=== PATIENT | male | born 1950 | race Caucasian/White ===

== ENCOUNTER 2018-05-10 05:39 | Inpatient (IN) | payer MEDICARE, OTHER ==
[2018-05-08 13:44] LABS: CLARITY,URINE CLEAR (Clear); COLOR,URINE YELLOW (Yellow); GLUCOSE, URINE NEGATIVE (Neg); KETONES,URINE NEGATIVE (Neg); LEUKOCYTE ESTERASE ,URINE NEGATIVE (Neg); NITRITES, URINE NEGATIVE (Neg); OCCULT BLOOD,URINE NEGATIVE (Neg); PH,URINE 6.5 (4.8-8.0); PROTEIN,URINE NEGATIVE (Neg); UROBILINOGEN,URINE 0.2 E.U/dL (0.2-1.0)
[2018-05-08 13:44] LABS: BASOPHILS % (AUTO) 0.7 % (0-1); EOSINOPHILS # (AUTO) 0.1 X10'3 (0-0.9); EOSINOPHILS % (AUTO) 2.2 % (0-6); LYMPHOCYTES # (AUTO) 0.9 X10'3 (1.1-4.8); MEAN CORPUSCULAR HEMOGLOBIN 29.1 PG (27.0-31.0); MEAN CORPUSCULAR HGB CONC 32.7 % (33.0-36.5); MEAN PLATELET VOLUME 9.1 FL (7.4-10.4); MONOCYTES # (AUTO) 0.6 X10'3 (0-0.9); MONOCYTES % (AUTO) 9.5 % (2-12); NEUTROPHILS # (AUTO) 4.2 X10'3 (1.8-7.7); NEUTROPHILS % (AUTO) 72.6 % (42-75); PRE OP HEMATOCRIT 34.5 % (42.0-52.0); PRE OP HEMOGLOBIN 11.3 g/dL (14.0-17.9); PRE OP PLATELET COUNT 238 X10'3 (140-440); RED BLOOD COUNT 3.88 X10'6 (4.70-6.10); RED CELL DISTRIBUTION WIDTH 14.8 % (11.5-14.5)
[2018-05-08 13:48] LABS: PRE OP PROTIME 9.8 SECONDS (9.0-12.0)
[2018-05-08 13:49] LABS: UA COLLECTION TYPE CLN CATCH MIDSTREAM
[2018-05-08 13:50] LABS: HEMOGLOBIN A1C 5.8 % (4.5-6.2)
[2018-05-08 13:52] LABS: ALBUMIN 3.6 G/DL (3.4-5.0); ALKALINE PHOSPHATASE 103 IU/L (46-116); BLOOD UREA NITROGEN 17 MG/DL (7-18); BUN/CREATININE RATIO 17.3 (5.4-32.0); CHLORIDE 103 MMOL/L (99-107); CREATININE 0.98 MG/DL (0.60-1.10); PRE OP ALT 25 U/L (30-65); PRE OP ANION GAP 7 (8-16); PRE OP AST 22 U/L (10-37); PRE OP BILIRUB, TOTAL 0.4 MG/DL (0.0-1.0); PRE OP GLUCOSE 102 MG/DL (70-104); PRE OP SODIUM 141 MMOL/L (135-145); TOTAL CARBON DIOXIDE 30.7 MMOL/L (24-32); TOTAL PROTEIN 7.1 G/DL (6.4-8.2); eGFR 76 ML/MIN
[2018-05-09 05:40] LABS: ABG HCO3 25.5 mmol/L (22.0-26.0); ABG OXYGEN SATURATION 95.7 % (95-98); ABG PH (T) 7.422 (7.350-7.450); ABG PO2 (T) 80.9 mmHg (83-108); ALLEN'S TEST Positive; FCOHb 0.2 % (0.5-1.5); FMetHb 0.3 % (0.3-1.12); FO2Hb 95.2 % (94-100); TOTAL HEMOGLOBIN 11.7 G/dl (14.0-18.0)
[2018-05-10] VITALS (29 sets, daily range): BP systolic 87–121; BP diastolic 46–71
[~2018-05-10] VITALS: Ht 180.3 cm; Wt 109.4 kg
[2018-05-10] MEDS: insulin regular, human 100 UNIT in normal saline 100ml IV soln 99 ML IV SCH ×2 (05:30)
[~2018-05-10 05:39] MED LIST: LORazepam 2 mg/ml vial IV PRN; METO25TA6 PO; NAPR-1166 PO; NITR0.4T51 SL; [UNRECOGNIZED DRUG - OTHER]; cefazolin/dext.iso 2gm/50ml 50 ML IV ONE; famotidine 20mg tablet PO ONE; metoprolol tartrate 12.5mg (1/2 tablet) PO ONE; mupirocin 2% nasal ointment 1gm UD NS ONE; ringers solution, lacted 1,000 ML IV SCH; vancomycin inj 1,500 MG in normal saline 300ml IV soln IV ONE
[2018-05-10] MEDS ORDERED: sevoflurane 250ml liquid IH ONE (06:41)
[2018-05-10] MEDS ORDERED: protamine sulf. 10mg/ml inj. IV ONE (06:41)
[2018-05-10] MEDS ORDERED: DOPamine/D5W 400mg/250ml bag IV ONE (06:41)
[2018-05-10] MEDS ORDERED: neostigmine methylsulfate 1 MG/ML 10ml vial ONE (06:41)
[2018-05-10] MEDS ORDERED: INSULIN R 100 UNIT in NS 100ML (1 UNIT/1 ML) BAG IV ONE (06:41)
[2018-05-10] MEDS ORDERED: NORepinephrine bitartrate 8 MG in NS 250 ML BAG (32 mcg/ml) IV ONE (06:41)
[2018-05-10] MEDS ORDERED: aminocaproic acid 250 MG/1 ML inj. ONE ×2 (06:41→14:00)
[2018-05-10] MEDS ORDERED: MIDAZolam 1mg/ml 10ml vial ONE (06:43)
[2018-05-10] MEDS ORDERED: SUFENTANIL CITRATE 50 MCG/ML 2ml ampule IV ONE (06:43)
[2018-05-10 07:40] LABS: ABG BASE EXCESS 0.4 mmol/L (-2.0-3.0); ABG HCO3 25.6 mmol/L (22.0-26.0); ABG OXYGEN SATURATION 99.5 % (95-98); ABG PCO2 44.1 mmHg (35.0-45.0); ABG PH 7.382 (7.350-7.450); ABG PO2 275.9 mmHg (60.0-100.0); CL (ABG) 107 mmol/L (99-107); FCOHb 0.1 % (0.5-1.5); FMetHb 0.3 % (0.3-1.12); FO2Hb 99.1 % (94-100); GLUCOSE (ABG) 109 mg/dl (70-105); IONIZED CA (ABG) 1.13 mmol/L (1.03-1.32); K (ABG) 3.6 mmol/L (3.3-5.1); NA (ABG) 138 mmol/L (135-145); TOTAL HEMOGLOBIN 10.4 G/dl (14.0-18.0)
[2018-05-10] MEDS ORDERED: rocuronium 10mg/ml inj IV ONE ×3 (07:41)
[2018-05-10] MEDS ORDERED: propofol inj 20 ML IV ONE (07:41)
[2018-05-10] MEDS ORDERED: papaverine 30 mg/ml 2ml inj. IA ONE (08:13)
[2018-05-10] MEDS ORDERED: heparin 10,000 units/1 ML INJ IR ONE (08:14)
[2018-05-10 08:41] LABS: ACT @ 1.70 U 313 SEC (193-297); ACT @ 2.84 U 418 SEC (260-420); BASELINE ACT 141 SEC (101-148)
[2018-05-10 08:41] LABS: ABG HCO3 VENOUS 25.7 mmol/L; ABG PCO2 VENOUS 46.7 mmHg; ABG PO2 VENOUS 48.4 mmHg; CL (ABG) 107 mmol/L (99-107); FCOHb VENOUS 0.5 %; FMetHb VENOUS 0.1 %; FO2Hb VENOUS 83.4 %; GLUCOSE (ABG) 119 mg/dl (70-105); IONIZED CA (ABG) 1.09 mmol/L (1.03-1.32); K (ABG) 3.7 mmol/L (3.3-5.1); NA (ABG) 136 mmol/L (135-145); TOTAL HEMOGLOBIN 10.3 G/dl (14.0-18.0)
[2018-05-10 09:26] LABS: ABG BASE EXCESS -0.5 mmol/L (-2.0-3.0); ABG HCO3 23.7 mmol/L (22.0-26.0); ABG OXYGEN SATURATION 99.4 % (95-98); ABG PCO2 36.8 mmHg (35.0-45.0); ABG PH 7.427 (7.350-7.450); ABG PO2 353.8 mmHg (60.0-100.0); CL (ABG) 106 mmol/L (99-107); FCOHb 0.8 % (0.5-1.5); FMetHb 0.3 % (0.3-1.12); FO2Hb 98.3 % (94-100); GLUCOSE (ABG) 125 mg/dl (70-105); IONIZED CA (ABG) 1.01 mmol/L (1.03-1.32); K (ABG) 5.5 mmol/L (3.3-5.1); NA (ABG) 133 mmol/L (135-145); TOTAL HEMOGLOBIN 7.5 G/dl (14.0-18.0)
[2018-05-10 09:45] LABS: ABG BASE EXCESS -1.3 mmol/L (-2.0-3.0); ABG HCO3 22.8 mmol/L (22.0-26.0); ABG OXYGEN SATURATION 99.5 % (95-98); ABG PCO2 35.7 mmHg (35.0-45.0); ABG PH 7.424 (7.350-7.450); ABG PO2 293.8 mmHg (60.0-100.0); CL (ABG) 106 mmol/L (99-107); FCOHb 0.4 % (0.5-1.5); FMetHb 0.1 % (0.3-1.12); GLUCOSE (ABG) 154 mg/dl (70-105); IONIZED CA (ABG) 1.03 mmol/L (1.03-1.32); K (ABG) 4.3 mmol/L (3.3-5.1); NA (ABG) 135 mmol/L (135-145); TOTAL HEMOGLOBIN 9.3 G/dl (14.0-18.0)
[2018-05-10 10:11] LABS: ABG BASE EXCESS VENOUS -2.1 mmol/L; ABG HCO3 VENOUS 23.1 mmol/L; ABG PCO2 VENOUS 40.9 mmHg; ABG PO2 VENOUS 45.6 mmHg; CL (ABG) 105 mmol/L (99-107); FCOHb VENOUS 0.9 %; FHHb VENOUS 19.7 %; FMetHb VENOUS 0.1 %; FO2Hb VENOUS 79.3 %; GLUCOSE (ABG) 208 mg/dl (70-105); IONIZED CA (ABG) 1.05 mmol/L (1.03-1.32); NA (ABG) 135 mmol/L (135-145); TOTAL HEMOGLOBIN 8.6 G/dl (14.0-18.0)
[2018-05-10 10:26] LABS: ABG BASE EXCESS -1.4 mmol/L (-2.0-3.0); ABG OXYGEN SATURATION 99.3 % (95-98); ABG PCO2 50.7 mmHg (35.0-45.0); ABG PO2 223.5 mmHg (60.0-100.0); CL (ABG) 106 mmol/L (99-107); FCOHb 0.8 % (0.5-1.5); FMetHb 0.1 % (0.3-1.12); FO2Hb 98.4 % (94-100); GLUCOSE (ABG) 234 mg/dl (70-105); IONIZED CA (ABG) 1.05 mmol/L (1.03-1.32); K (ABG) 3.8 mmol/L (3.3-5.1); NA (ABG) 135 mmol/L (135-145); TOTAL HEMOGLOBIN 8.2 G/dl (14.0-18.0)
[2018-05-10 10:30] LABS: ABG BASE EXCESS 1.8 mmol/L (-2.0-3.0); ABG HCO3 26.8 mmol/L (22.0-26.0); ABG OXYGEN SATURATION 99.3 % (95-98); ABG PCO2 44.3 mmHg (35.0-45.0); ABG PO2 262.4 mmHg (60.0-100.0); CL (ABG) 106 mmol/L (99-107); FCOHb 0.8 % (0.5-1.5); FO2Hb 98.5 % (94-100); GLUCOSE (ABG) 234 mg/dl (70-105); IONIZED CA (ABG) 1.03 mmol/L (1.03-1.32); K (ABG) 4.1 mmol/L (3.3-5.1); NA (ABG) 136 mmol/L (135-145)
[2018-05-10 10:56] LABS: ABG HCO3 21.3 mmol/L (22.0-26.0); ABG OXYGEN SATURATION 98.5 % (95-98); ABG PCO2 39.8 mmHg (35.0-45.0); ABG PH 7.347 (7.350-7.450); ABG PO2 151.2 mmHg (60.0-100.0); CL (ABG) 104 mmol/L (99-107); FCOHb 0.3 % (0.5-1.5); FMetHb 0.1 % (0.3-1.12); FO2Hb 98.1 % (94-100); GLUCOSE (ABG) 207 mg/dl (70-105); IONIZED CA (ABG) 1.38 mmol/L (1.03-1.32); K (ABG) 3.8 mmol/L (3.3-5.1); NA (ABG) 134 mmol/L (135-145); TOTAL HEMOGLOBIN 9.3 G/dl (14.0-18.0)
[2018-05-10 11:00] LABS: ABG BASE EXCESS 1.4 mmol/L (-2.0-3.0); ABG HCO3 26.3 mmol/L (22.0-26.0); ABG OXYGEN SATURATION 99.2 % (95-98); ABG PCO2 42.7 mmHg (35.0-45.0); ABG PH 7.407 (7.350-7.450); ABG PO2 326.4 mmHg (60.0-100.0); CL (ABG) 105 mmol/L (99-107); FCOHb 0.4 % (0.5-1.5); FMetHb 0.4 % (0.3-1.12); FO2Hb 98.4 % (94-100); GLUCOSE (ABG) 203 mg/dl (70-105); IONIZED CA (ABG) 1.41 mmol/L (1.03-1.32); NA (ABG) 135 mmol/L (135-145); TOTAL HEMOGLOBIN 8.5 G/dl (14.0-18.0)
[2018-05-10 11:21] LABS: ABG BASE EXCESS VENOUS 2.1 mmol/L; ABG HCO3 VENOUS 27.4 mmol/L; ABG PCO2 VENOUS 46.8 mmHg; ABG PO2 VENOUS 50.1 mmHg; CL (ABG) 106 mmol/L (99-107); FCOHb VENOUS 0.5 %; FHHb VENOUS 14.2 %; FMetHb VENOUS 0.3 %; GLUCOSE (ABG) 190 mg/dl (70-105); IONIZED CA (ABG) 1.23 mmol/L (1.03-1.32); K (ABG) 3.7 mmol/L (3.3-5.1); NA (ABG) 138 mmol/L (135-145)
[2018-05-10 11:46] LABS: ACTIVATED CLOTTING TIME 101 SEC (101-148)
[2018-05-10] MEDS ORDERED: nitroGLYCERIN-Tridil 50MG/D5W 250 ML IV PRN (11:53)
[2018-05-10] MEDS ORDERED: niCARDipine-NS 40mg/200ml IVPB 200 ML IV PRN (11:53)
[2018-05-10] MEDS ORDERED: DOPamine 400mg/D5W 250ml 250 ML IV PRN (11:53)
[2018-05-10] MEDS ORDERED: insulin regular, human inj. 100 UNITS in normal saline 100ml IV soln 100 ML IV SCH ×2 (11:55)
[2018-05-10] MEDS ORDERED: sodium phosphate inj. 15 MMOL in dextrose 5%-water 150 ML IV PRN (11:55)
[2018-05-10] MEDS ORDERED: sodium phosphate inj. 30 MMOL in dextrose 5%-water 250 ML IV PRN (11:55)
[2018-05-10] MEDS ORDERED: HYDROcodone/acetaminophen 10/325mg tab PO PRN (11:55)
[2018-05-10] MEDS ORDERED: dextrose 50%-water 50ml dispensing syringe IV PRN (11:55)
[2018-05-10] MEDS ORDERED: normal saline 250ml IV soln 250 ML IV PRN (11:55)
[2018-05-10] MEDS ORDERED: morphine 4 MG/ML inj SYRINge IV PRN (11:55)
[2018-05-10] MEDS ORDERED: metoclopramide 5 mg/ml inj IV PRN (11:55)
[2018-05-10] MEDS ORDERED: magnesium hydroxide 30ml (MOM) UD suspension PO PRN (11:55)
[2018-05-10] MEDS ORDERED: pantoprazole 40 MG vial IV ONE (11:55)
[2018-05-10] MEDS ORDERED: acetaminophen 325mg tablet PO PRN (11:55)
[2018-05-10] MEDS ORDERED: ondansetron/PF 4mg/2ml inj IV PRN (11:55)
[2018-05-10] MEDS ORDERED: Neutra Phos packet PO PRN (11:55)
[2018-05-10] MEDS: insulin Lispro (HumaLOG) vial - multi-dose SQ SCH ×2 (12:02→16:49)
[2018-05-10 12:36] LABS: ABG BASE EXCESS 0.5 mmol/L (-2.0-3.0); ABG HCO3 25.2 mmol/L (22.0-26.0); ABG OXYGEN SATURATION 98.3 % (95-98); ABG PCO2 (T) 41.1 mmHg (35.0-48.0); ABG PH (T) 7.406 (7.350-7.450); ABG PO2 (T) 161.4 mmHg (83-108); FCOHb 0.3 % (0.5-1.5); FMetHb 0.1 % (0.3-1.12); FO2Hb 97.9 % (94-100); MINUTE VOLUME 10 L/min; PEEP 5 cm H2O; RESPIRATORY RATE 12 b/min; RESPIRATORY RATE (OBSERVED) 12 b/min; TIDAL VOLUME 600 mL; TOTAL HEMOGLOBIN 10.2 G/dl (14.0-18.0)
[2018-05-10 12:41] LABS: BASOPHILS % (AUTO) 0.1 % (0-1); EOSINOPHILS # (AUTO) 0.1 X10'3 (0-0.9); EOSINOPHILS % (AUTO) 1.2 % (0-6); HEMATOCRIT 28.4 % (42.0-52.0); HEMOGLOBIN 9.3 g/dl (14.0-17.9); LYMPHOCYTES # (AUTO) 0.7 X10'3 (1.1-4.8); LYMPHOCYTES % (AUTO) 5.7 % (21-51); MEAN CORPUSCULAR HEMOGLOBIN 29.1 PG (27.0-31.0); MEAN CORPUSCULAR HGB CONC 32.9 % (33.0-36.5); MEAN CORPUSCULAR VOLUME 88.4 FL (78-98); MEAN PLATELET VOLUME 8.6 FL (7.4-10.4); MONOCYTES # (AUTO) 1.1 X10'3 (0-0.9); MONOCYTES % (AUTO) 9.4 % (2-12); NEUTROPHILS % (AUTO) 83.6 % (42-75); PLATELET COUNT 138 X10'3 (140-440); RED BLOOD COUNT 3.21 X10'6 (4.70-6.10); RED CELL DISTRIBUTION WIDTH 14.5 % (11.5-14.5)
[2018-05-10] MEDS: albumin (Human) 5% 250ml 250 ML IV PRN ×4 (12:52→19:51)
[2018-05-10] MEDS: phenylephrine inj 10 MG in normal saline 250ml IV soln 249 ML IV SCH ×4 (13:20→23:20)
[2018-05-10] MEDS: sodium chloride 0.45% 1,000 ML IV SCH (13:22)
[2018-05-10 13:23] LABS: INR 1.2 INR; PARTIAL THROMBOPLASTIN TIME 23 SECONDS (22-32); PROTHROMBIN TIME 11.6 SECONDS (9.0-12.0)
[2018-05-10 13:24] LABS: ALANINE AMINOTRANSFERASE 21 U/L (12-78); ALBUMIN 2.9 G/DL (3.4-5.0); ALBUMIN/GLOBULIN RATIO 1.3 (1.1-1.5); ALKALINE PHOSPHATASE 70 IU/L (46-116); ANION GAP 10 (8-16); ASPARTATE AMINO TRANSFERASE 44 U/L (10-37); BILIRUBIN,TOTAL 0.8 MG/DL (0.1-1.0); BLOOD UREA NITROGEN 13 MG/DL (7-18); BUN/CREATININE RATIO 13.7 (5.4-32.0); CALCIUM 9.2 MG/DL (8.5-10.1); CHLORIDE 109 MMOL/L (99-107); CREATININE 0.95 MG/DL (0.60-1.10); GLUCOSE 143 MG/DL (70-104); MAGNESIUM 2.8 MG/DL (1.5-2.4); PHOSPHORUS 2.7 MG/DL (2.3-4.5); POTASSIUM 3.6 MMOL/L (3.5-5.1); SODIUM 145 MMOL/L (135-145); TOTAL CARBON DIOXIDE 26.5 MMOL/L (24-32); TOTAL PROTEIN 5.2 G/DL (6.4-8.2); eGFR 79 ML/MIN
[2018-05-10] MEDS ORDERED: NORepinephrine 8mg/ 250ml NS 250 ML IV ONE (13:39)
[2018-05-10] MEDS: morphine 4 MG/ML inj SYRINge IV PRN ×4 (13:47→23:19)
[2018-05-10] MEDS: NORepinephrine 8mg/ 250ml NS 250 ML IV SCH ×2 (13:47→21:21)
[2018-05-10] MEDS ORDERED: heparin 10,000 units/1 ML INJ ONE (14:00)
[2018-05-10] MEDS ORDERED: phenylephrine 10mg/ml inj. ONE (14:00)
[2018-05-10] MEDS ORDERED: LIDOcaine 2% (20 mg/ml) 5ml cardiac syringe ONE (14:00)
[2018-05-10] MEDS ORDERED: albumin (human) 25% 100 ML IV solution IV ONE (14:00)
[2018-05-10] MEDS ORDERED: potassium Cl 2 mEq/ml inj IV ONE (14:00)
[2018-05-10] MEDS ORDERED: calcium chloride 100 MG/1 ML inj IV ONE (14:00)
[2018-05-10] MEDS ORDERED: sodium bicarbonate (8.4%) 1 mEq/ml syringe ONE (14:00)
[2018-05-10] MEDS ORDERED: methylPREDNISolone sod. succ. 500mg inj ONE (14:00)
[2018-05-10] MEDS ORDERED: heparin 1,000 units/ml 10ml inj ONE (14:00)
[2018-05-10] MEDS ORDERED: magnesium 1 GM/2 ML inj ONE (14:00)
[2018-05-10] MEDS: potassium Cl 20mEq/100mL bag 100 ML IV PRN ×2 (14:43→15:45)
[2018-05-10 16:18] LABS: HEMATOCRIT 23.1 % (42.0-52.0); HEMOGLOBIN 7.5 g/dl (14.0-17.9); MEAN CORPUSCULAR HEMOGLOBIN 28.8 PG (27.0-31.0); MEAN CORPUSCULAR HGB CONC 32.6 % (33.0-36.5); MEAN CORPUSCULAR VOLUME 88.5 FL (78-98); MEAN PLATELET VOLUME 8.5 FL (7.4-10.4); PLATELET COUNT 135 X10'3 (140-440); RED BLOOD COUNT 2.61 X10'6 (4.70-6.10); RED CELL DISTRIBUTION WIDTH 14.8 % (11.5-14.5); WHITE BLOOD COUNT 13.5 X10'3 (4.5-11.0)
[2018-05-10] MEDS: cefazolin/dext.iso 2gm/50ml 50 ML IV SCH (16:49)
[2018-05-10 20:00] LABS: BASOPHILS % (AUTO) 0 % (0-1); EOSINOPHILS % (AUTO) 0 % (0-6); HEMATOCRIT 24.1 % (42.0-52.0); HEMOGLOBIN 7.8 g/dl (14.0-17.9); LYMPHOCYTES # (AUTO) 0.2 X10'3 (1.1-4.8); LYMPHOCYTES % (AUTO) 2.5 % (21-51); MEAN CORPUSCULAR HEMOGLOBIN 28.8 PG (27.0-31.0); MEAN CORPUSCULAR HGB CONC 32.3 % (33.0-36.5); MEAN CORPUSCULAR VOLUME 89.2 FL (78-98); MEAN PLATELET VOLUME 8.4 FL (7.4-10.4); MONOCYTES # (AUTO) 0.4 X10'3 (0-0.9); MONOCYTES % (AUTO) 4.6 % (2-12); NEUTROPHILS # (AUTO) 8.5 X10'3 (1.8-7.7); NEUTROPHILS % (AUTO) 92.9 % (42-75); PLATELET COUNT 154 X10'3 (140-440); RED CELL DISTRIBUTION WIDTH 14.4 % (11.5-14.5); WHITE BLOOD COUNT 9.2 X10'3 (4.5-11.0)
[2018-05-10] MEDS: docusate sod 100mg capsule PO SCH (20:00)
[2018-05-10 20:08] LABS: ALBUMIN 3.3 G/DL (3.4-5.0); ANION GAP 9 (8-16); BLOOD UREA NITROGEN 15 MG/DL (7-18); CALCIUM 8.5 MG/DL (8.5-10.1); CHLORIDE 111 MMOL/L (99-107); GLUCOSE 118 MG/DL (70-104); MAGNESIUM 2.2 MG/DL (1.5-2.4); PHOSPHORUS 2.6 MG/DL (2.3-4.5); POTASSIUM 4.1 MMOL/L (3.5-5.1); SODIUM 147 MMOL/L (135-145); TOTAL CARBON DIOXIDE 26.9 MMOL/L (24-32); eGFR 75 ML/MIN
[2018-05-10] MEDS: vancomycin/NS 1 GM ADD-VANTAGE 250 ML IV SCH (21:20)
[2018-05-10] MEDS: mupirocin 2% nasal ointment 1gm UD NS SCH (21:20)
[2018-05-11] VITALS (33 sets, daily range): BP systolic 98–138; BP diastolic 36–68
[2018-05-11] MEDS: cefazolin/dext.iso 2gm/50ml 50 ML IV SCH ×3 (00:16→16:13)
[2018-05-11 01:35] LABS: BASOPHILS % (AUTO) 0.1 % (0-1); EOSINOPHILS % (AUTO) 0.1 % (0-6); HEMATOCRIT 22.6 % (42.0-52.0); HEMOGLOBIN 7.8 g/dl (14.0-17.9); LYMPHOCYTES # (AUTO) 0.4 X10'3 (1.1-4.8); LYMPHOCYTES % (AUTO) 4.1 % (21-51); MEAN CORPUSCULAR HEMOGLOBIN 30.8 PG (27.0-31.0); MEAN CORPUSCULAR HGB CONC 34.5 % (33.0-36.5); MEAN CORPUSCULAR VOLUME 89.2 FL (78-98); MEAN PLATELET VOLUME 8.6 FL (7.4-10.4); MONOCYTES # (AUTO) 0.7 X10'3 (0-0.9); MONOCYTES % (AUTO) 6.8 % (2-12); NEUTROPHILS # (AUTO) 9.3 X10'3 (1.8-7.7); NEUTROPHILS % (AUTO) 88.9 % (42-75); PLATELET COUNT 125 X10'3 (140-440); RED BLOOD COUNT 2.53 X10'6 (4.70-6.10); RED CELL DISTRIBUTION WIDTH 13.5 % (11.5-14.5); WHITE BLOOD COUNT 10.4 X10'3 (4.5-11.0)
[2018-05-11 01:47] LABS: ALANINE AMINOTRANSFERASE 20 U/L (12-78); ALBUMIN 3.2 G/DL (3.4-5.0); ALBUMIN/GLOBULIN RATIO 1.4 (1.1-1.5); ALKALINE PHOSPHATASE 54 IU/L (46-116); ANION GAP 8 (8-16); ASPARTATE AMINO TRANSFERASE 43 U/L (10-37); BILIRUBIN,TOTAL 0.4 MG/DL (0.1-1.0); BLOOD UREA NITROGEN 15 MG/DL (7-18); BUN/CREATININE RATIO 14.7 (5.4-32.0); CALCIUM 8.3 MG/DL (8.5-10.1); CHLORIDE 111 MMOL/L (99-107); CREATININE 1.02 MG/DL (0.60-1.10); GLUCOSE 130 MG/DL (70-104); PHOSPHORUS 3.3 MG/DL (2.3-4.5); POTASSIUM 4.1 MMOL/L (3.5-5.1); SODIUM 146 MMOL/L (135-145); TOTAL CARBON DIOXIDE 27.3 MMOL/L (24-32); TOTAL PROTEIN 5.5 G/DL (6.4-8.2); eGFR 73 ML/MIN
[2018-05-11 01:49] LABS: PARTIAL THROMBOPLASTIN TIME 26 SECONDS (22-32); PROTHROMBIN TIME 10.3 SECONDS (9.0-12.0)
[2018-05-11] MEDS: morphine 4 MG/ML inj SYRINge IV PRN ×3 (01:59→22:12)
[2018-05-11] MEDS: phenylephrine inj 10 MG in normal saline 250ml IV soln 249 ML IV SCH ×3 (02:32→09:20)
[2018-05-11] MEDS: potassium Cl 20mEq/100mL bag 100 ML IV PRN (02:33)
[2018-05-11] MEDS: vasopressin inj. 60 UNIT in normal saline 100ml IV soln 97 ML IV SCH (02:59)
[2018-05-11 03:21] LABS: ABG BASE EXCESS 1.6 mmol/L (-2.0-3.0); ABG HCO3 26.3 mmol/L (22.0-26.0); ABG OXYGEN SATURATION 98.1 % (95-98); ABG PCO2 (T) 42.7 mmHg (35.0-48.0); ABG PO2 (T) 130.1 mmHg (83-108); FCOHb 0.1 % (0.5-1.5); FMetHb 0.2 % (0.3-1.12); FO2Hb 97.8 % (94-100); PATIENT TEMPERATURE 37.3; PEEP 5 cm H2O; RESPIRATORY RATE 12 b/min; RESPIRATORY RATE (OBSERVED) 12 b/min; TIDAL VOLUME 600 mL; TOTAL HEMOGLOBIN 7.4 G/dl (14.0-18.0)
[2018-05-11] MEDS: magnesium 4gm in 100ml NS 100 ML IV PRN (03:28)
[2018-05-11] MEDS: insulin regular, human 100 UNIT in normal saline 100ml IV soln 99 ML IV SCH ×4 (05:30→06:03)
[2018-05-11] MEDS: mupirocin 2% nasal ointment 1gm UD NS SCH ×2 (07:25→20:12)
[2018-05-11] MEDS: insulin Lispro (HumaLOG) vial - multi-dose SQ SCH ×3 (07:30→18:00)
[2018-05-11] MEDS: aspirin 325mg tablet, delayed-release (Ecotrin) PO SCH (07:30)
[2018-05-11] MEDS: docusate sod 100mg capsule PO SCH ×2 (08:00→20:22)
[2018-05-11] MEDS: metoprolol tartrate 12.5mg (1/2 tablet) PO SCH ×2 (08:00→20:20)
[2018-05-11 08:32] LABS: MEAN CORPUSCULAR HEMOGLOBIN 29.9 PG (27.0-31.0); MEAN CORPUSCULAR HGB CONC 33.5 % (33.0-36.5); MEAN CORPUSCULAR VOLUME 89.4 FL (78-98); MEAN PLATELET VOLUME 8.8 FL (7.4-10.4); PLATELET COUNT 156 X10'3 (140-440); RED BLOOD COUNT 2.23 X10'6 (4.70-6.10); RED CELL DISTRIBUTION WIDTH 14.7 % (11.5-14.5)
[2018-05-11 08:43] LABS: HEMOGLOBIN 6.7 g/dl (14.0-17.9)
[2018-05-11 08:44] LABS: HEMATOCRIT 19.9 % (42.0-52.0)
[2018-05-11] MEDS: vancomycin/NS 1 GM ADD-VANTAGE 250 ML IV SCH ×2 (09:24→20:12)
[2018-05-11] MEDS: atorvastatin 10mg tablet PO SCH (09:24)
[2018-05-11 11:16] LABS: ABG BASE EXCESS 3.3 mmol/L (-2.0-3.0); ABG HCO3 27.8 mmol/L (22.0-26.0); ABG OXYGEN SATURATION 96.9 % (95-98); ABG PCO2 (T) 42.1 mmHg (35.0-48.0); ABG PH (T) 7.438 (7.350-7.450); ABG PO2 (T) 95.9 mmHg (83-108); FCOHb 0.3 % (0.5-1.5); FMetHb 0.1 % (0.3-1.12); FO2Hb 96.5 % (94-100); MINUTE VOLUME 8 L/min; PEEP 5 cm H2O; RESPIRATORY RATE (OBSERVED) 16 b/min; TIDAL VOLUME 490 mL; TOTAL HEMOGLOBIN 7.4 G/dl (14.0-18.0)
[2018-05-11] MEDS: NORepinephrine 8mg/ 250ml NS 250 ML IV SCH (11:35)
[2018-05-11 12:29] LABS: HEMATOCRIT 22.7 % (42.0-52.0); HEMOGLOBIN 7.5 g/dl (14.0-17.9); MEAN CORPUSCULAR HEMOGLOBIN 29.2 PG (27.0-31.0); MEAN CORPUSCULAR HGB CONC 33.1 % (33.0-36.5); MEAN CORPUSCULAR VOLUME 88.4 FL (78-98); MEAN PLATELET VOLUME 8.8 FL (7.4-10.4); PLATELET COUNT 147 X10'3 (140-440); RED BLOOD COUNT 2.56 X10'6 (4.70-6.10); RED CELL DISTRIBUTION WIDTH 15.3 % (11.5-14.5); WHITE BLOOD COUNT 9.8 X10'3 (4.5-11.0)
[2018-05-11 16:15] LABS: HEMOGLOBIN 7.2 g/dl (14.0-17.9); MEAN CORPUSCULAR HEMOGLOBIN 29.4 PG (27.0-31.0); MEAN CORPUSCULAR HGB CONC 32.9 % (33.0-36.5); MEAN CORPUSCULAR VOLUME 89.5 FL (78-98); PLATELET COUNT 146 X10'3 (140-440); RED BLOOD COUNT 2.44 X10'6 (4.70-6.10); RED CELL DISTRIBUTION WIDTH 15.8 % (11.5-14.5); WHITE BLOOD COUNT 8.9 X10'3 (4.5-11.0)
[2018-05-11 16:17] LABS: HEMATOCRIT 21.8 % (42.0-52.0)
[2018-05-11 21:07] LABS: MAGNESIUM 2.2 MG/DL (1.5-2.4); POTASSIUM 4.4 MMOL/L (3.5-5.1)
[2018-05-11 21:23] LABS: BASOPHILS % (AUTO) 0 % (0-1); EOSINOPHILS # (AUTO) 0.1 X10'3 (0-0.9); EOSINOPHILS % (AUTO) 1.2 % (0-6); HEMATOCRIT 25.1 % (42.0-52.0); HEMOGLOBIN 8.3 g/dl (14.0-17.9); LYMPHOCYTES # (AUTO) 0.5 X10'3 (1.1-4.8); LYMPHOCYTES % (AUTO) 5.2 % (21-51); MEAN CORPUSCULAR HEMOGLOBIN 29.7 PG (27.0-31.0); MEAN CORPUSCULAR HGB CONC 33.1 % (33.0-36.5); MEAN CORPUSCULAR VOLUME 89.7 FL (78-98); MEAN PLATELET VOLUME 9.2 FL (7.4-10.4); MONOCYTES # (AUTO) 1.1 X10'3 (0-0.9); MONOCYTES % (AUTO) 10.7 % (2-12); NEUTROPHILS # (AUTO) 8.3 X10'3 (1.8-7.7); NEUTROPHILS % (AUTO) 82.9 % (42-75); PLATELET COUNT 127 X10'3 (140-440); RED CELL DISTRIBUTION WIDTH 15.7 % (11.5-14.5)
[2018-05-11] MEDS: magnesium 2GM in 50ml NS 50 ML IV PRN (22:12)
[2018-05-12] VITALS (24 sets, daily range): BP systolic 92–146; BP diastolic 27–64
[2018-05-12] MEDS: cefazolin/dext.iso 2gm/50ml 50 ML IV SCH (00:50)
[2018-05-12 02:42] LABS: BASOPHILS % (AUTO) 0 % (0-1); EOSINOPHILS # (AUTO) 0.1 X10'3 (0-0.9); HEMATOCRIT 24.8 % (42.0-52.0); HEMOGLOBIN 8.2 g/dl (14.0-17.9); LYMPHOCYTES # (AUTO) 0.6 X10'3 (1.1-4.8); LYMPHOCYTES % (AUTO) 6.8 % (21-51); MEAN CORPUSCULAR HEMOGLOBIN 29.5 PG (27.0-31.0); MEAN CORPUSCULAR HGB CONC 32.9 % (33.0-36.5); MEAN CORPUSCULAR VOLUME 89.7 FL (78-98); MEAN PLATELET VOLUME 9.3 FL (7.4-10.4); MONOCYTES # (AUTO) 0.9 X10'3 (0-0.9); MONOCYTES % (AUTO) 9.6 % (2-12); NEUTROPHILS # (AUTO) 7.9 X10'3 (1.8-7.7); NEUTROPHILS % (AUTO) 82.6 % (42-75); PLATELET COUNT 117 X10'3 (140-440); RED BLOOD COUNT 2.77 X10'6 (4.70-6.10); RED CELL DISTRIBUTION WIDTH 15.6 % (11.5-14.5); WHITE BLOOD COUNT 9.5 X10'3 (4.5-11.0)
[2018-05-12 02:54] LABS: ANION GAP 9 (8-16); BLOOD UREA NITROGEN 21 MG/DL (7-18); BUN/CREATININE RATIO 23.6 (5.4-32.0); CALCIUM 8.1 MG/DL (8.5-10.1); CHLORIDE 108 MMOL/L (99-107); CREATININE 0.89 MG/DL (0.60-1.10); GLUCOSE 138 MG/DL (70-104); MAGNESIUM 2.5 MG/DL (1.5-2.4); PHOSPHORUS 3.6 MG/DL (2.3-4.5); POTASSIUM 4.5 MMOL/L (3.5-5.1); SODIUM 144 MMOL/L (135-145); TOTAL CARBON DIOXIDE 27.5 MMOL/L (24-32); eGFR 85 ML/MIN
[2018-05-12] MEDS: aspirin 325mg tablet, delayed-release (Ecotrin) PO SCH (08:00)
[2018-05-12] MEDS: insulin Lispro (HumaLOG) vial - multi-dose SQ SCH ×3 (09:00→18:00)
[2018-05-12] MEDS: pantoprazole 40mg Tablet.DR PO SCH (09:09)
[2018-05-12] MEDS: atorvastatin 10mg tablet PO SCH (09:09)
[2018-05-12] MEDS: docusate sod 100mg capsule PO SCH ×2 (09:09→19:56)
[2018-05-12] MEDS: metoprolol tartrate 12.5mg (1/2 tablet) PO SCH ×2 (09:09→19:57)
[2018-05-12] MEDS: mupirocin 2% nasal ointment 1gm UD NS SCH (09:10)
[2018-05-12] MEDS ORDERED: METHYLENE BLUE IV ONE ×2 (09:15→11:30)
[2018-05-12] MEDS ORDERED: NORMAL SALINE IV ONE (09:15)
[2018-05-12] MEDS ORDERED: WATER IV ONE (11:30)
[2018-05-12] MEDS ORDERED: DEXTROSE 5% IV ONE (11:30)
[2018-05-12] MEDS: sodium chloride 0.45% 1,000 ML IV SCH ×2 (11:53→19:59)
[2018-05-12] MEDS: NORepinephrine 8mg/ 250ml NS 250 ML IV SCH (13:35)
[2018-05-12 14:44] LABS: HEMATOCRIT 25.1 % (42.0-52.0); HEMOGLOBIN 8.3 g/dl (14.0-17.9); MEAN CORPUSCULAR HEMOGLOBIN 29.6 PG (27.0-31.0); MEAN CORPUSCULAR HGB CONC 33.1 % (33.0-36.5); MEAN CORPUSCULAR VOLUME 89.2 FL (78-98); MEAN PLATELET VOLUME 9.5 FL (7.4-10.4); PLATELET COUNT 135 X10'3 (140-440); RED BLOOD COUNT 2.82 X10'6 (4.70-6.10); RED CELL DISTRIBUTION WIDTH 15.4 % (11.5-14.5); WHITE BLOOD COUNT 10.3 X10'3 (4.5-11.0)
[2018-05-13] VITALS (23 sets, daily range): BP systolic 92–132; BP diastolic 50–72
[2018-05-13] MEDS: vasopressin inj. 60 UNIT in normal saline 100ml IV soln 97 ML IV SCH (02:15)
[2018-05-13] MEDS: HYDROcodone/acetaminophen 10/325mg tab PO PRN ×2 (03:24→13:15)
[2018-05-13 03:53] LABS: ANION GAP 8 (8-16); BLOOD UREA NITROGEN 22 MG/DL (7-18); CALCIUM 8.4 MG/DL (8.5-10.1); CHLORIDE 104 MMOL/L (99-107); CREATININE 0.71 MG/DL (0.60-1.10); GLUCOSE 126 MG/DL (70-104); MAGNESIUM 1.7 MG/DL (1.5-2.4); PHOSPHORUS 2.2 MG/DL (2.3-4.5); POTASSIUM 4.1 MMOL/L (3.5-5.1); SODIUM 140 MMOL/L (135-145); TOTAL CARBON DIOXIDE 28.3 MMOL/L (24-32); eGFR > 90 ML/MIN
[2018-05-13 04:30] LABS: BASOPHILS % (AUTO) 0 % (0-1); EOSINOPHILS % (AUTO) 0 % (0-6); HEMATOCRIT 24.2 % (42.0-52.0); HEMOGLOBIN 8.1 g/dl (14.0-17.9); LYMPHOCYTES # (AUTO) 0.8 X10'3 (1.1-4.8); LYMPHOCYTES % (AUTO) 7.8 % (21-51); MEAN CORPUSCULAR HEMOGLOBIN 30.1 PG (27.0-31.0); MEAN CORPUSCULAR HGB CONC 33.6 % (33.0-36.5); MEAN CORPUSCULAR VOLUME 89.4 FL (78-98); MEAN PLATELET VOLUME 9.7 FL (7.4-10.4); MONOCYTES # (AUTO) 1.1 X10'3 (0-0.9); MONOCYTES % (AUTO) 11.2 % (2-12); PLATELET COUNT 114 X10'3 (140-440); RED CELL DISTRIBUTION WIDTH 15.7 % (11.5-14.5); WHITE BLOOD COUNT 9.9 X10'3 (4.5-11.0)
[2018-05-13] MEDS: magnesium 2GM in 50ml NS 50 ML IV PRN (04:43)
[2018-05-13] MEDS: insulin regular, human 100 UNIT in normal saline 100ml IV soln 99 ML IV SCH ×2 (05:30)
[2018-05-13] MEDS: magnesium 4gm in 100ml NS 100 ML IV PRN (05:36)
[2018-05-13] MEDS: potassium Cl 20mEq/100mL bag 100 ML IV PRN (07:26)
[2018-05-13] MEDS: metoprolol tartrate 12.5mg (1/2 tablet) PO SCH ×2 (08:00→20:39)
[2018-05-13] MEDS: pantoprazole 40mg Tablet.DR PO SCH (08:29)
[2018-05-13] MEDS: docusate sod 100mg capsule PO SCH ×2 (08:30→20:37)
[2018-05-13] MEDS: atorvastatin 10mg tablet PO SCH (08:30)
[2018-05-13] MEDS: insulin Lispro (HumaLOG) vial - multi-dose SQ SCH ×3 (09:00→18:00)
[2018-05-13] MEDS: Protein Smoothie (high protein) 240ml (8oz) cup PO SCH ×2 (13:12→20:37)
[2018-05-14] VITALS (19 sets, daily range): BP systolic 92–139; BP diastolic 51–88
[2018-05-14] MEDS: HYDROcodone/acetaminophen 10/325mg tab PO PRN (03:35)
[2018-05-14 03:49] LABS: BASOPHILS % (AUTO) 0.2 % (0-1); EOSINOPHILS # (AUTO) 0.1 X10'3 (0-0.9); EOSINOPHILS % (AUTO) 0.8 % (0-6); HEMATOCRIT 26.3 % (42.0-52.0); HEMOGLOBIN 8.5 g/dl (14.0-17.9); LYMPHOCYTES # (AUTO) 0.9 X10'3 (1.1-4.8); MEAN CORPUSCULAR HEMOGLOBIN 29.1 PG (27.0-31.0); MEAN CORPUSCULAR HGB CONC 32.5 % (33.0-36.5); MEAN CORPUSCULAR VOLUME 89.7 FL (78-98); MEAN PLATELET VOLUME 9.5 FL (7.4-10.4); MONOCYTES # (AUTO) 0.9 X10'3 (0-0.9); MONOCYTES % (AUTO) 12.1 % (2-12); NEUTROPHILS # (AUTO) 5.8 X10'3 (1.8-7.7); NEUTROPHILS % (AUTO) 74.9 % (42-75); PLATELET COUNT 127 X10'3 (140-440); RED BLOOD COUNT 2.93 X10'6 (4.70-6.10); RED CELL DISTRIBUTION WIDTH 15.2 % (11.5-14.5); WHITE BLOOD COUNT 7.8 X10'3 (4.5-11.0)
[2018-05-14 04:06] LABS: ANION GAP 6 (8-16); BLOOD UREA NITROGEN 18 MG/DL (7-18); BUN/CREATININE RATIO 26.1 (5.4-32.0); CALCIUM 8.6 MG/DL (8.5-10.1); CHLORIDE 103 MMOL/L (99-107); CREATININE 0.69 MG/DL (0.60-1.10); GLUCOSE 117 MG/DL (70-104); MAGNESIUM 1.7 MG/DL (1.5-2.4); PHOSPHORUS 3.2 MG/DL (2.3-4.5); SODIUM 140 MMOL/L (135-145); TOTAL CARBON DIOXIDE 31.2 MMOL/L (24-32); eGFR > 90 ML/MIN
[2018-05-14] MEDS: magnesium 2GM in 50ml NS 50 ML IV PRN (04:26)
[2018-05-14] MEDS: insulin regular, human 100 UNIT in normal saline 100ml IV soln 99 ML IV SCH ×2 (04:30)
[2018-05-14] MEDS: magnesium 4gm in 100ml NS 100 ML IV PRN (05:27)
[2018-05-14] MEDS ORDERED: magnesium citrate 296ml oral solution PO ONE (08:45)
[2018-05-14] MEDS: insulin Lispro (HumaLOG) vial - multi-dose SQ SCH ×3 (09:00→18:00)
[2018-05-14] MEDS: potassium Cl 20mEq/100mL bag 100 ML IV PRN ×4 (09:13→21:42)
[2018-05-14] MEDS: docusate sod 100mg capsule PO SCH ×2 (09:14→19:50)
[2018-05-14] MEDS: metoprolol tartrate 12.5mg (1/2 tablet) PO SCH ×2 (09:14→19:50)
[2018-05-14] MEDS: atorvastatin 10mg tablet PO SCH (09:15)
[2018-05-14] MEDS: pantoprazole 40mg Tablet.DR PO SCH (09:15)
[2018-05-14] MEDS: Protein Smoothie (high protein) 240ml (8oz) cup PO SCH ×3 (09:16→18:03)
[2018-05-14] MEDS: sodium chloride 0.45% 1,000 ML IV SCH (11:53)
[2018-05-14] MEDS ORDERED: amiodarone 150mg/dext, iso-os 100 ML IV ONE (13:00)
[2018-05-14] MEDS: NORepinephrine 8mg/ 250ml NS 250 ML IV SCH (13:35)
[2018-05-14] MEDS: amiodarone/D5 360MG/200ML BAG 200 ML IV SCH ×2 (13:41→19:01)
[2018-05-14 14:20] LABS: MAGNESIUM 2.5 MG/DL (1.5-2.4); POTASSIUM 3.6 MMOL/L (3.5-5.1)
[2018-05-15] VITALS (24 sets, daily range): BP systolic 85–125; BP diastolic 46–76
[2018-05-15] MEDS: amiodarone/D5 360MG/200ML BAG 200 ML IV SCH ×2 (01:08→07:27)
[2018-05-15] MEDS: vasopressin inj. 60 UNIT in normal saline 100ml IV soln 97 ML IV SCH (02:15)
[2018-05-15] MEDS: insulin regular, human 100 UNIT in normal saline 100ml IV soln 99 ML IV SCH ×2 (03:18)
[2018-05-15 03:44] LABS: BASOPHILS % (AUTO) 0.2 % (0-1); EOSINOPHILS % (AUTO) 0.4 % (0-6); HEMOGLOBIN 9.9 g/dl (14.0-17.9); LYMPHOCYTES # (AUTO) 0.6 X10'3 (1.1-4.8); LYMPHOCYTES % (AUTO) 8.2 % (21-51); MEAN CORPUSCULAR HEMOGLOBIN 29.7 PG (27.0-31.0); MEAN CORPUSCULAR HGB CONC 32.9 % (33.0-36.5); MEAN CORPUSCULAR VOLUME 90.5 FL (78-98); MONOCYTES % (AUTO) 13.2 % (2-12); NEUTROPHILS # (AUTO) 5.9 X10'3 (1.8-7.7); PLATELET COUNT 154 X10'3 (140-440); RED BLOOD COUNT 3.31 X10'6 (4.70-6.10); RED CELL DISTRIBUTION WIDTH 15.3 % (11.5-14.5); WHITE BLOOD COUNT 7.6 X10'3 (4.5-11.0)
[2018-05-15 03:55] LABS: ALBUMIN 3.1 G/DL (3.4-5.0); ANION GAP 7 (8-16); BLOOD UREA NITROGEN 16 MG/DL (7-18); BUN/CREATININE RATIO 23.2 (5.4-32.0); CALCIUM 8.5 MG/DL (8.5-10.1); CHLORIDE 101 MMOL/L (99-107); CREATININE 0.69 MG/DL (0.60-1.10); GLUCOSE 118 MG/DL (70-104); PHOSPHORUS 3.4 MG/DL (2.3-4.5); POTASSIUM 4.4 MMOL/L (3.5-5.1); SODIUM 138 MMOL/L (135-145); TOTAL CARBON DIOXIDE 30.1 MMOL/L (24-32); eGFR > 90 ML/MIN
[2018-05-15] MEDS: magnesium 4gm in 100ml NS 100 ML IV PRN (05:37)
[2018-05-15] MEDS: sodium chloride 0.45% 1,000 ML IV SCH (05:44)
[2018-05-15] MEDS: atorvastatin 10mg tablet PO SCH (07:51)
[2018-05-15] MEDS: pantoprazole 40mg Tablet.DR PO SCH (07:51)
[2018-05-15] MEDS: metoprolol tartrate 12.5mg (1/2 tablet) PO SCH ×2 (07:52→19:49)
[2018-05-15] MEDS: potassium Cl 20mEq/100mL bag 100 ML IV PRN (07:54)
[2018-05-15] MEDS: docusate sod 100mg capsule PO SCH ×2 (07:59→19:50)
[2018-05-15] MEDS: Protein Smoothie (high protein) 240ml (8oz) cup PO SCH ×3 (08:00→18:00)
[2018-05-15] MEDS: insulin Lispro (HumaLOG) vial - multi-dose SQ SCH ×3 (09:00→18:00)
[2018-05-15] MEDS: amiodarone 200mg tablet PO SCH ×2 (09:31→19:49)
[2018-05-15] MEDS: HYDROcodone/acetaminophen 10/325mg tab PO PRN (11:35)
[2018-05-15 12:06] LABS: MAGNESIUM 2.6 MG/DL (1.5-2.4); POTASSIUM 4.5 MMOL/L (3.5-5.1)
[2018-05-16] VITALS (24 sets, daily range): BP systolic 84–136; BP diastolic 54–70
[2018-05-16 04:18] LABS: ALBUMIN 2.8 G/DL (3.4-5.0); ANION GAP 8 (8-16); BLOOD UREA NITROGEN 19 MG/DL (7-18); BUN/CREATININE RATIO 23.5 (5.4-32.0); CALCIUM 8.3 MG/DL (8.5-10.1); CHLORIDE 99 MMOL/L (99-107); CREATININE 0.81 MG/DL (0.60-1.10); GLUCOSE 121 MG/DL (70-104); POTASSIUM 4.4 MMOL/L (3.5-5.1); SODIUM 136 MMOL/L (135-145); TOTAL CARBON DIOXIDE 28.7 MMOL/L (24-32); eGFR > 90 ML/MIN
[2018-05-16 04:24] LABS: RED BLOOD COUNT 3.14 X10'6 (4.70-6.10); WHITE BLOOD COUNT 7.8 X10'3 (4.5-11.0)
[2018-05-16 04:25] LABS: BASOPHILS % (AUTO) 0.2 % (0-1); EOSINOPHILS # (AUTO) 0.3 X10'3 (0-0.9); EOSINOPHILS % (AUTO) 4.3 % (0-6); HEMATOCRIT 28.1 % (42.0-52.0); HEMOGLOBIN 9.7 g/dl (14.0-17.9); LYMPHOCYTES # (AUTO) 0.8 X10'3 (1.1-4.8); LYMPHOCYTES % (AUTO) 9.7 % (21-51); MEAN CORPUSCULAR HEMOGLOBIN 30.8 PG (27.0-31.0); MEAN CORPUSCULAR HGB CONC 34.4 % (33.0-36.5); MEAN CORPUSCULAR VOLUME 89.6 FL (78-98); MEAN PLATELET VOLUME 9.3 FL (7.4-10.4); MONOCYTES # (AUTO) 1.2 X10'3 (0-0.9); MONOCYTES % (AUTO) 14.8 % (2-12); NEUTROPHILS # (AUTO) 5.5 X10'3 (1.8-7.7); PLATELET COUNT 158 X10'3 (140-440); RED CELL DISTRIBUTION WIDTH 14.2 % (11.5-14.5)
[2018-05-16] MEDS: insulin regular, human 100 UNIT in normal saline 100ml IV soln 99 ML IV SCH ×2 (05:30)
[2018-05-16] MEDS: pantoprazole 40mg Tablet.DR PO SCH (07:32)
[2018-05-16] MEDS: atorvastatin 10mg tablet PO SCH (07:32)
[2018-05-16] MEDS: metoprolol tartrate 12.5mg (1/2 tablet) PO SCH ×2 (07:32→19:31)
[2018-05-16] MEDS: docusate sod 100mg capsule PO SCH ×2 (07:32→19:31)
[2018-05-16] MEDS: amiodarone 200mg tablet PO SCH ×2 (07:32→19:31)
[2018-05-16] MEDS: Protein Smoothie (high protein) 240ml (8oz) cup PO SCH ×3 (08:08→18:00)
[2018-05-16] MEDS: insulin Lispro (HumaLOG) vial - multi-dose SQ SCH (08:08)
[2018-05-16] MEDS ORDERED: potassium Cl 20 mEq SR tablet PO STA (09:48)
[2018-05-16 10:58] LABS: MAGNESIUM 1.9 MG/DL (1.5-2.4); PHOSPHORUS 3.5 MG/DL (2.3-4.5)
[2018-05-16] MEDS: sodium chloride 0.45% 1,000 ML IV SCH (11:53)
[2018-05-17] VITALS (16 sets, daily range): BP systolic 108–136; BP diastolic 56–71
[2018-05-17 06:08] LABS: MAGNESIUM 1.6 MG/DL (1.5-2.4); PHOSPHORUS 3.6 MG/DL (2.3-4.5); POTASSIUM 4.1 MMOL/L (3.5-5.1)
[2018-05-17] MEDS: magnesium 4gm in 100ml NS 100 ML IV PRN (07:11)
[2018-05-17] MEDS: pantoprazole 40mg Tablet.DR PO SCH (07:11)
[2018-05-17] MEDS: docusate sod 100mg capsule PO SCH ×2 (08:00→08:20)
[2018-05-17] MEDS: atorvastatin 10mg tablet PO SCH (08:20)
[2018-05-17] MEDS: amiodarone 200mg tablet PO SCH (08:20)
[2018-05-17] MEDS: metoprolol tartrate 12.5mg (1/2 tablet) PO SCH (08:20)
[2018-05-17] MEDS: Protein Smoothie (high protein) 240ml (8oz) cup PO SCH ×2 (08:21→13:00)
[2018-05-17] MEDS ORDERED: lactose-reduced food (Ensure High Protein) 237ml bottle PO SCH (12:30)
== END 2018-05-17 15:22 | DRG 220 ==
LOC: PAS IN 05:39 → EDSTATUS 07:30 → ICU 2S 11:45
PROVIDERS: ADMIT Thoracic Surgery (Cardiothoracic Vascular Surgery); ATTEND Thoracic Surgery (Cardiothoracic Vascular Surgery)
PROC: 02100Z9 Bypass Coronary Artery, One Artery from Left Internal Mammary, Open Approach (ICD-10-PCS; 2018-05-10)
PROC: 021009W Bypass Coronary Artery, One Artery from Aorta with Autologous Venous Tissue, Open Approach (ICD-10-PCS; 2018-05-10)
PROC: 06BQ4ZZ Excision of Left Saphenous Vein, Percutaneous Endoscopic Approach (ICD-10-PCS; 2018-05-10)
PROC: 30233R1 Transfusion of Nonautologous Platelets into Peripheral Vein, Percutaneous Approach (ICD-10-PCS; 2018-05-10)
PROC: 30233N1 Transfusion of Nonautologous Red Blood Cells into Peripheral Vein, Percutaneous Approach (ICD-10-PCS; 2018-05-10)
PROC: 30233M1 Transfusion of Nonautologous Plasma Cryoprecipitate into Peripheral Vein, Percutaneous Approach (ICD-10-PCS; 2018-05-10)
PROC: 05HM33Z Insertion of Infusion Device into Right Internal Jugular Vein, Percutaneous Approach (ICD-10-PCS; 2018-05-10)
PROC: 5A1221Z Performance of Cardiac Output, Continuous (ICD-10-PCS; 2018-05-10)
PROC: B24BZZ4 Ultrasonography of Heart with Aorta, Transesophageal (ICD-10-PCS; 2018-05-10)
PROC: 02HP32Z Insertion of Monitoring Device into Pulmonary Trunk, Percutaneous Approach (ICD-10-PCS; 2018-05-10)
PROC: 4A133B3 Monitoring of Arterial Pressure, Pulmonary, Percutaneous Approach (ICD-10-PCS; 2018-05-10)
PROC: X2RF032 Replacement of Aortic Valve using Zooplastic Tissue, Rapid Deployment Technique, Open Approach, New Technology Group 2 (ICD-10-PCS; principal; 2018-05-10 06:41)
PROC: 30233R1 Transfusion of Nonautologous Platelets into Peripheral Vein, Percutaneous Approach (ICD-10-PCS; 2018-05-11)
PROC: 30233N1 Transfusion of Nonautologous Red Blood Cells into Peripheral Vein, Percutaneous Approach (ICD-10-PCS; 2018-05-11)
DX: I35.0 Nonrheumatic aortic (valve) stenosis (principal); D68.9 Coagulation defect, unspecified; I47.2 Ventricular tachycardia; J98.11 Atelectasis; I25.118 Atherosclerotic heart disease of native coronary artery with other forms of angina pectoris; Z96.642 Presence of left artificial hip joint; E78.5 Hyperlipidemia, unspecified; I34.0 Nonrheumatic mitral (valve) insufficiency; Z79.899 Other long term (current) drug therapy; Z79.82 Long term (current) use of aspirin; Z88.0 Allergy status to penicillin; Z87.891 Personal history of nicotine dependence
CPT/HCPCS: 0232T; 93312; 93325; 36415; 36600; 71045; 71046; 80048; 80053; 81003; 82330; 82435; 82803; 82947; 82948; 83036; 83735; 84100; 84132; 84295; 85018; 85025; 85027; 85347; 85384; 85610; 85730; 86885; 86900; 86901; 86920; 87040; 87070; 88300; 93005; 93880; 93971; 94002; 94003; 94010; 94668; 94760; 97116; 97162; 97530; A6258; A6402; A6446; A6449; A7000; A7048; C1751; C9113; G0378; J0282; J0690; J1265; J1644; J1815; J2001; J2060; J2150; J2250; J2270; J2370; J2440; J2704; J2710; J2720; J2930; J3370; J3475; J3480; J3490; J7030; J7040; J7060; J7120; P9012; P9016; P9035; P9045; P9047; Q9968

== ENCOUNTER 2018-05-28 12:41 | Emergency (ER) | payer MEDICARE, OTHER ==
[~2018-05-28] VITALS: Ht 180.3 cm; Wt 104.0 kg
[~2018-05-28 12:41] MED LIST changes: -LORazepam 2 mg/ml vial IV PRN; -cefazolin/dext.iso 2gm/50ml 50 ML IV ONE; -famotidine 20mg tablet PO ONE; -metoprolol tartrate 12.5mg (1/2 tablet) PO ONE; -mupirocin 2% nasal ointment 1gm UD NS ONE; -ringers solution, lacted 1,000 ML IV SCH; -vancomycin inj 1,500 MG in normal saline 300ml IV soln IV ONE
[2018-05-28 14:31] LABS: BASOPHILS # (AUTO) 0.1 X10'3 (0-0.2); BASOPHILS % (AUTO) 0.5 % (0-1); EOSINOPHILS # (AUTO) 0.3 X10'3 (0-0.9); EOSINOPHILS % (AUTO) 2.5 % (0-6); HEMATOCRIT 32.2 % (42.0-52.0); HEMOGLOBIN 10.5 g/dl (14.0-17.9); LYMPHOCYTES # (AUTO) 0.9 X10'3 (1.1-4.8); LYMPHOCYTES % (AUTO) 8.5 % (21-51); MEAN CORPUSCULAR HEMOGLOBIN 28.8 PG (27.0-31.0); MEAN CORPUSCULAR HGB CONC 32.6 % (33.0-36.5); MEAN CORPUSCULAR VOLUME 88.5 FL (78-98); MEAN PLATELET VOLUME 7.5 FL (7.4-10.4); MONOCYTES # (AUTO) 0.8 X10'3 (0-0.9); MONOCYTES % (AUTO) 8.1 % (2-12); NEUTROPHILS # (AUTO) 8.4 X10'3 (1.8-7.7); NEUTROPHILS % (AUTO) 80.4 % (42-75); PLATELET COUNT 415 X10'3 (140-440); RED BLOOD COUNT 3.63 X10'6 (4.70-6.10); RED CELL DISTRIBUTION WIDTH 15.4 % (11.5-14.5); WHITE BLOOD COUNT 10.4 X10'3 (4.5-11.0)
[2018-05-28 14:38] LABS: ALANINE AMINOTRANSFERASE 19 U/L (12-78); ALBUMIN 2.7 G/DL (3.4-5.0); ALBUMIN/GLOBULIN RATIO 0.6 (1.1-1.5); ALKALINE PHOSPHATASE 126 IU/L (46-116); ANION GAP 9 (8-16); ASPARTATE AMINO TRANSFERASE 20 U/L (10-37); BILIRUBIN,TOTAL 0.5 MG/DL (0.1-1.0); BLOOD UREA NITROGEN 11 MG/DL (7-18); BUN/CREATININE RATIO 11.7 (5.4-32.0); CALCIUM 8.7 MG/DL (8.5-10.1); CHLORIDE 101 MMOL/L (99-107); CREATININE 0.94 MG/DL (0.60-1.10); GLUCOSE 121 MG/DL (70-104); POTASSIUM 3.8 MMOL/L (3.5-5.1); SODIUM 139 MMOL/L (135-145); TOTAL CARBON DIOXIDE 28.7 MMOL/L (24-32); TOTAL PROTEIN 7.1 G/DL (6.4-8.2); eGFR 80 ML/MIN
[2018-05-28 14:57] VITALS: BP 108/63
[2018-05-28] MEDS ORDERED: LIDOcaine 1% w/epiNEPHrine 1:200,000 30ml vial IJ ONE (15:15)
[2018-05-28 16:14] LABS: PLEURAL FLUID PH 7.488 (7.63-7.65)
[2018-05-28 16:15] LABS: BFSOURCE LEFT PLEURAL FLD
[2018-05-28 16:26] LABS: ALBUMIN,BODY FLUID 1.9 G/DL; AMYLASE,BODY FLUID 45 U/L
[2018-05-28 16:27] LABS: LDH,BODY FLUID 770 U/L; TOTAL PROTEIN,BODY FLUID 3.5 G/DL
[2018-05-28 16:49] LABS: BF RBC COUNT 59625 /CU MM; BF WBC COUNT 2020 /CU MM (0-1000); BFAPPEAR BLOODY; BFCOLOR RED; BFVOLUME 20 ML
[2018-05-28 16:51] LABS: EOSINOPHILS,BODY FLUID 3 %; LYMPHOCYTES,BODY FLUID 16 %; MONOCYTES,BODY FLUID 2 %; NEUTROPHILS,BODY FLUID 79 %
== END 2018-05-28 17:45 | disposition home or self-care (01) ==
LOC: ER 12:42
DX: J90 Pleural effusion, not elsewhere classified (principal); R60.0 Localized edema; I35.0 Nonrheumatic aortic (valve) stenosis; I25.10 Atherosclerotic heart disease of native coronary artery without angina pectoris; E78.00 Pure hypercholesterolemia, unspecified; I10 Essential (primary) hypertension; Z95.1 Presence of aortocoronary bypass graft; Z88.0 Allergy status to penicillin; Z79.899 Other long term (current) drug therapy
CPT/HCPCS: 32555; 36415; 71045; 80053; 82042; 82150; 83615; 83986; 84157; 85025; 85610; 87070; 89051; 99285; J3490; 32554

== ENCOUNTER 2019-08-22 07:25 | Inpatient (IN) | payer MEDICARE, MEDICAID ==
--- NOTE | 2019-08-14 11:00 | NUR ---
[facility] PT'S MEDICAL CONCERNS WERE DISCUSSED WITH DR GLOVER, AND HE WILL SEE PT AGAIN TODAY TO LOOK AT LOWER BUTTOCK'S "RASH". DR GLOVER STATES THAT DR MOLINA IS AWARE OF PT'S UPCOMING SURGERY.
[2019-08-14 11:03] LABS: BASOPHILS % (AUTO) 0.4 % (0-1); EOSINOPHILS # (AUTO) 0.1 X10'3 (0-0.9); LYMPHOCYTES # (AUTO) 1.1 X10'3 (1.1-4.8); LYMPHOCYTES % (AUTO) 16.7 % (21-51); MEAN CORPUSCULAR HEMOGLOBIN 27.6 PG (27.0-31.0); MEAN CORPUSCULAR HGB CONC 32.8 g/dL (33.0-36.5); MEAN PLATELET VOLUME 8.1 FL (7.4-10.4); MONOCYTES # (AUTO) 0.6 X10'3 (0-0.9); MONOCYTES % (AUTO) 10.1 % (2-12); NEUTROPHILS # (AUTO) 4.6 X10'3 (1.8-7.7); NEUTROPHILS % (AUTO) 71.8 % (42-75); PRE OP HEMATOCRIT 37.7 % (42.0-52.0); PRE OP HEMOGLOBIN 12.4 g/dL (14.0-17.9); PRE OP PLATELET COUNT 235 X10'3 (140-440); RED BLOOD COUNT 4.49 X10'6 (4.70-6.10); RED CELL DISTRIBUTION WIDTH 18.6 % (11.5-14.5)
[2019-08-14 11:19] LABS: PRE OP PROTIME 10.3 SECONDS (9.0-12.0)
[2019-08-14 11:28] LABS: ALBUMIN 3.6 G/DL (3.4-5.0); ALBUMIN/GLOBULIN RATIO 0.9 (1.1-1.5); ALKALINE PHOSPHATASE 105 IU/L (46-116); BLOOD UREA NITROGEN 22 MG/DL (7-18); BUN/CREATININE RATIO 25.6 (5.4-32.0); CALCIUM 9.1 MG/DL (8.5-10.1); CHLORIDE 106 MMOL/L (99-107); CREATININE 0.86 MG/DL (0.60-1.10); PRE OP ALT 14 U/L (30-65); PRE OP ANION GAP 7 (8-16); PRE OP AST 18 U/L (10-37); PRE OP BILIRUB, TOTAL 0.5 MG/DL (0.0-1.0); PRE OP GLUCOSE 105 MG/DL (70-104); PRE OP POTASSIUM 3.8 MMOL/L (3.4-5.1); PRE OP SODIUM 142 MMOL/L (135-145); TOTAL CARBON DIOXIDE 29.5 MMOL/L (24-32); TOTAL PROTEIN 7.5 G/DL (6.4-8.2); eGFR 88 ML/MIN
[2019-08-14 11:29] LABS: ANISOCYTOSIS 1+; PLATELET ESTIMATE NORMAL
[~2019-08-22] VITALS: Ht 180.3 cm; Wt 85.7 kg
[2019-08-22] VITALS (18 sets, daily range): BP systolic 128–158; BP diastolic 60–96
[~2019-08-22 07:25] MED LIST changes: +ACET-2119 PO; +FERR-106 PO; -METO25TA6 PO; -NAPR-1166 PO; -NITR0.4T51 SL; -[UNRECOGNIZED DRUG - OTHER]; +cefazolin/dext.iso 2gm/100ml 100 ML IV ONE; +famotidine 20mg tablet PO ONE; +ringers solution, lacted 1,000 ML IV SCH; +vancomycin 1,500 MG in NS 500ml IV soln IV ONE
[2019-08-22] MEDS ORDERED: ondansetron/PF 4mg/2ml inj IV PRN ×3 (07:55→13:30)
[2019-08-22] MEDS ORDERED: ringers solution, lacted 1,000 ML IV SCH (07:55)
[2019-08-22] MEDS ORDERED: proCHLORperazine 10 MG/2 ml inj IV PRN ×2 (07:55→13:30)
[2019-08-22] MEDS ORDERED: morphine 2 MG/ML inj. syringe IV PRN ×2 (07:55→13:30)
[2019-08-22] MEDS ORDERED: morphine 4 MG/ML inj SYRINge IV PRN ×2 (07:55→13:30)
[2019-08-22] MEDS ORDERED: meperidine/PF 25mg/ml syringe IV PRN ×5 (07:55→13:30)
[2019-08-22] MEDS ORDERED: TRANEXAMIC ACID 1 GM IN NACL,ISO-OS 100 ML IV ONE (10:15)
[2019-08-22] MEDS ORDERED: fentaNYL/PF 50MCG/1 ML 2ML syringe ONE (10:20)
[2019-08-22] MEDS ORDERED: MIDAZolam 5mg/5ml vial ONE (10:21)
[2019-08-22] MEDS ORDERED: propofol inj 20 ML IV ONE (11:02)
[2019-08-22] MEDS ORDERED: LIDOcaine 2% (20mg/ml) 5ml vial ONE (11:02)
[2019-08-22] MEDS ORDERED: albumin (Human) 5% 250ml 250 ML IV ONE (11:37)
[2019-08-22] MEDS ORDERED: ePHEDrine 50MG/ML INJ. ONE (12:35)
[2019-08-22] MEDS ORDERED: bisacodyl 10mg suppository rectal RC PRN (13:00)
[2019-08-22] MEDS ORDERED: acetaminophen 325mg tablet PO PRN (13:00)
[2019-08-22] MEDS ORDERED: diphenhydrAMINE 25mg capsule PO PRN ×2 (13:00)
[2019-08-22] MEDS ORDERED: HYDROmorphone inj. 0.5 MG/0.5 ML DISP.SYRIN IV PRN (13:00)
[2019-08-22] MEDS ORDERED: magnesium hydroxide 30ml (MOM) UD suspension PO PRN (13:00)
--- NOTE | 2019-08-22 13:02 | NUR ---
Received from OR via BED, accompanied by Anesthesiologist DR MATSON and report given by Anesthesiologist. PT AWAKE, DENIES PAIN RIGHT HIP W/DRSG, HIP WRAP, ICE PACK, DILLON DRAIN W/GREEN LIGHT ILLUMINATION, DONATO CATHETER TO GRAVITY DRAINAGE W/YELLOW URINE IN DRAINAGE BAG. Addendum: 08/22/19 at 1346 by Amelia Montalvo RN Amended: Links added.
[2019-08-22] MEDS: meperidine/PF 25mg/ml syringe IV PRN ×2 (13:33→13:48)
--- NOTE | 2019-08-22 14:12 | NUR ---
Report called to receiving nurse. Transferred via BED, 1 LARGE BAG OF Belongings, 1 CANE SENT W/PT TO ROOM 402 WITH PT, RECEIVING RN AT BEDSIDE TO RECEIVE PT. Special Issues communicated to receiving nurse. YES. Addendum: 08/22/19 at 1432 by Amelia Montalvo RN Amended: Links added.
--- NOTE | 2019-08-22 14:20 | NUR ---
Patient in room ORTHO 4021. I have received report from TRACEY VOGT and had the opportunity to ask questions and assume patient care.
[2019-08-22] MEDS: potassium Cl 20mEq in NS 1,000 ML IV SCH (16:48)
[2019-08-22] MEDS: ceFAZolin 1GM/D5W- ADD-VANTAGE 50 ML IV SCH (16:48)
[2019-08-22] MEDS: HYDROcodone/acetaminophen 10/325mg tab PO PRN (16:57)
[2019-08-22] MEDS: aspirin 81mg tablet.DR PO SCH (16:58)
--- NOTE | 2019-08-22 18:20 | NUR ---
Problems reprioritized. Patient report given, questions answered & plan of care reviewed with RENEE VOGT.
--- NOTE | 2019-08-22 18:30 | NUR ---
Patient in room ORTHO 4021. I have received report from Tana VOGT and had the opportunity to ask questions and assume patient care.
[2019-08-22] MEDS ORDERED: vancomycin/NS 1 GM ADD-VANTAGE 250 ML IV SCH (20:00)
[2019-08-22] MEDS: sennosides 8.6mg tablet PO SCH (20:12)
[2019-08-23] MEDS: ceFAZolin 1GM/D5W- ADD-VANTAGE 50 ML IV SCH (00:38)
[2019-08-23] MEDS: HYDROcodone/acetaminophen 10/325mg tab PO PRN ×3 (00:47→17:45)
--- NOTE | 2019-08-23 01:32 | NUR ---
took a call that patient had 9 beat run of [facility]. patient sleeping. VS taken 103/53 HR 109. No c/o pain or distress.
--- NOTE | 2019-08-23 01:46 | NUR ---
Called MD and notified of beats of V-tach. No new orders
[2019-08-23 02:00] VITALS: BP 111/47
[2019-08-23] MEDS: potassium Cl 20mEq in NS 1,000 ML IV SCH ×2 (02:17→07:14)
--- NOTE | 2019-08-23 05:39 | NUR ---
DC'D [place] per MD order. Patient tolerated well.
[2019-08-23 06:00] VITALS: BP 109/61
--- NOTE | 2019-08-23 06:10 | NUR ---
Patient in room ORTHO 4021. I have received report from RENEE VOGT and had the opportunity to ask questions and assume patient care.
[2019-08-23 06:25] LABS: BASOPHILS % (AUTO) 0.4 % (0-1); EOSINOPHILS # (AUTO) 0.1 X10'3 (0-0.9); EOSINOPHILS % (AUTO) 1.1 % (0-6); HEMATOCRIT 28.9 % (42.0-52.0); HEMOGLOBIN 9.8 g/dl (14.0-17.9); LYMPHOCYTES # (AUTO) 0.6 X10'3 (1.1-4.8); LYMPHOCYTES % (AUTO) 8.6 % (21-51); MEAN CORPUSCULAR HEMOGLOBIN 28.7 PG (27.0-31.0); MEAN CORPUSCULAR VOLUME 84.5 FL (78-98); MEAN PLATELET VOLUME 8.4 FL (7.4-10.4); MONOCYTES # (AUTO) 0.7 X10'3 (0-0.9); MONOCYTES % (AUTO) 10.4 % (2-12); NEUTROPHILS # (AUTO) 5.7 X10'3 (1.8-7.7); NEUTROPHILS % (AUTO) 79.5 % (42-75); PLATELET COUNT 143 X10'3 (140-440); RED BLOOD COUNT 3.41 X10'6 (4.70-6.10); RED CELL DISTRIBUTION WIDTH 17.8 % (11.5-14.5); WHITE BLOOD COUNT 7.1 X10'3 (4.5-11.0)
--- NOTE | 2019-08-23 06:25 | NUR ---
Problems reprioritized. Patient report given, questions answered & plan of care reviewed with Tana VOGT.
[2019-08-23 06:53] LABS: ALANINE AMINOTRANSFERASE 12 U/L (12-78); ALBUMIN 2.6 G/DL (3.4-5.0); ALBUMIN/GLOBULIN RATIO 0.9 (1.1-1.5); ALKALINE PHOSPHATASE 74 IU/L (46-116); ANION GAP 5 (8-16); ASPARTATE AMINO TRANSFERASE 17 U/L (10-37); BILIRUBIN,TOTAL 0.7 MG/DL (0.1-1.0); BLOOD UREA NITROGEN 10 MG/DL (7-18); BUN/CREATININE RATIO 11.5 (5.4-32.0); CALCIUM 7.9 MG/DL (8.5-10.1); CHLORIDE 106 MMOL/L (99-107); CREATININE 0.87 MG/DL (0.60-1.10); GLUCOSE 111 MG/DL (70-104); SODIUM 140 MMOL/L (135-145); TOTAL CARBON DIOXIDE 29.5 MMOL/L (24-32); TOTAL PROTEIN 5.6 G/DL (6.4-8.2); eGFR 87 ML/MIN
[2019-08-23] MEDS: aspirin 81mg tablet.DR PO SCH ×2 (07:12→17:45)
[2019-08-23 07:16] LABS: MAGNESIUM 1.5 MG/DL (1.5-2.4)
[2019-08-23] MEDS ORDERED: magnesium 2GM in 50ml NS 50 ML IV ONE ×2 (15:00→20:00)
[2019-08-23 18:00] VITALS: BP 99/57
--- NOTE | 2019-08-23 18:15 | NUR ---
Problems reprioritized. Patient report given, questions answered & plan of care reviewed with RENEE VOGT.
--- NOTE | 2019-08-23 18:39 | NUR ---
Patient in room ORTHO 4021. I have received report from Tana VOGT and had the opportunity to ask questions and assume patient care.
[2019-08-23] MEDS: magnesium oxide 400mg tablet PO SCH (19:33)
[2019-08-23] MEDS: metoprolol tartrate 25mg tablet PO SCH (19:34)
[2019-08-23 19:35] VITALS: BP 105/85
--- NOTE | 2019-08-23 19:41 | NUR ---
7 Beats of V-tach. called and made aware.
[2019-08-23] MEDS ORDERED: potassium Cl 20 mEq SR tablet PO PRN ×2 (20:00)
[2019-08-23] MEDS ORDERED: potassium CL 10mEq/100ml bag 100 ML IV PRN (20:00)
[2019-08-23] MEDS: sennosides 8.6mg tablet PO SCH (20:26)
[2019-08-23 22:00] VITALS: BP 84/51
[2019-08-24] VITALS (9 sets, daily range): BP systolic 86–124; BP diastolic 40–70
[2019-08-24] MEDS: potassium Cl 20mEq in NS 1,000 ML IV SCH (03:33)
[2019-08-24] MEDS: HYDROcodone/acetaminophen 10/325mg tab PO PRN ×2 (05:14→09:41)
--- NOTE | 2019-08-24 06:05 | NUR ---
Patient in room ORTHO 4021. I have received report from RENEE VOGT and had the opportunity to ask questions and assume patient care.
--- NOTE | 2019-08-24 06:15 | NUR ---
Problems reprioritized. Patient report given, questions answered & plan of care reviewed with Tana VOGT.
[2019-08-24 06:46] LABS: BASOPHILS % (AUTO) 0.3 % (0-1); EOSINOPHILS # (AUTO) 0.1 X10'3 (0-0.9); EOSINOPHILS % (AUTO) 1.6 % (0-6); HEMATOCRIT 29.6 % (42.0-52.0); LYMPHOCYTES # (AUTO) 0.5 X10'3 (1.1-4.8); LYMPHOCYTES % (AUTO) 5.2 % (21-51); MEAN CORPUSCULAR HEMOGLOBIN 28.6 PG (27.0-31.0); MEAN CORPUSCULAR HGB CONC 33.7 g/dL (33.0-36.5); MEAN CORPUSCULAR VOLUME 84.9 FL (78-98); MEAN PLATELET VOLUME 8.5 FL (7.4-10.4); MONOCYTES # (AUTO) 0.9 X10'3 (0-0.9); NEUTROPHILS # (AUTO) 7.5 X10'3 (1.8-7.7); NEUTROPHILS % (AUTO) 82.9 % (42-75); PLATELET COUNT 137 X10'3 (140-440); RED BLOOD COUNT 3.49 X10'6 (4.70-6.10); RED CELL DISTRIBUTION WIDTH 17.6 % (11.5-14.5); WHITE BLOOD COUNT 9.1 X10'3 (4.5-11.0)
[2019-08-24 06:56] LABS: ALANINE AMINOTRANSFERASE 16 U/L (12-78); ALBUMIN 2.5 G/DL (3.4-5.0); ALBUMIN/GLOBULIN RATIO 0.8 (1.1-1.5); ALKALINE PHOSPHATASE 84 IU/L (46-116); ANION GAP 6 (8-16); ASPARTATE AMINO TRANSFERASE 23 U/L (10-37); BILIRUBIN,TOTAL 0.5 MG/DL (0.1-1.0); BLOOD UREA NITROGEN 15 MG/DL (7-18); BUN/CREATININE RATIO 16.5 (5.4-32.0); CHLORIDE 102 MMOL/L (99-107); CREATININE 0.91 MG/DL (0.60-1.10); GLUCOSE 114 MG/DL (70-104); POTASSIUM 4.3 MMOL/L (3.5-5.1); SODIUM 136 MMOL/L (135-145); TOTAL CARBON DIOXIDE 28.2 MMOL/L (24-32); TOTAL PROTEIN 5.8 G/DL (6.4-8.2); eGFR 83 ML/MIN
[2019-08-24] MEDS: K and/or MAG REPLACEMENT MC SCH ×2 (08:00→19:53)
[2019-08-24] MEDS: metoprolol tartrate 25mg tablet PO SCH (08:00)
[2019-08-24] MEDS: aspirin 81mg tablet.DR PO SCH ×2 (08:36→17:45)
[2019-08-24] MEDS: magnesium oxide 400mg tablet PO SCH ×2 (08:36→19:52)
--- NOTE | 2019-08-24 13:51 | NUR ---
Joint consult: Pt seen at bedside provided with written and verbal protein education with RD contact information. Pt currently on a regular diet documented with 100% PO intake of protein and 50% PO intake of starch and milk for breakfast this morning. Pt endorses a good appetite, states he is getting full from meals, and denies additional protein/food preferences at this time. Pt denies food allergies, difficulty chewing/swallowing, or constipation/diarrhea. [facility] 08/21 receiving routine bowel care. Will continue to follow. Addendum: 08/24/19 at [address] Amended: Links added.
[2019-08-24] MEDS ORDERED: normal saline 1000ml 1,000 ML IV ONE (15:10)
--- NOTE | 2019-08-24 15:10 | NUR ---
Problems reprioritized. Patient report given, questions answered & plan of care reviewed with KARI VOGT.
--- NOTE | 2019-08-24 18:21 | NUR ---
Problems reprioritized. Patient report given, questions answered & plan of care reviewed with Debra VOGT.
--- NOTE | 2019-08-24 18:25 | NUR ---
Patient in room ORTHO 4021. I have received report from Leia VOGT and had the opportunity to ask questions and assume patient care.
[2019-08-24] MEDS: metoprolol tartrate 12.5mg (1/2 tablet) PO SCH ×2 (19:52→20:33)
[2019-08-24] MEDS: sennosides 8.6mg tablet PO SCH (20:33)
[2019-08-24] MEDS ORDERED: atorvastatin 20mg tablet PO SCH (21:00)
[2019-08-25 05:53] LABS: BASOPHILS % (AUTO) 0.5 % (0-1); EOSINOPHILS # (AUTO) 0.3 X10'3 (0-0.9); EOSINOPHILS % (AUTO) 3.1 % (0-6); HEMATOCRIT 30.1 % (42.0-52.0); HEMOGLOBIN 10.1 g/dl (14.0-17.9); LYMPHOCYTES # (AUTO) 0.7 X10'3 (1.1-4.8); LYMPHOCYTES % (AUTO) 8.5 % (21-51); MEAN CORPUSCULAR HEMOGLOBIN 28.3 PG (27.0-31.0); MEAN CORPUSCULAR HGB CONC 33.6 g/dL (33.0-36.5); MEAN CORPUSCULAR VOLUME 84.3 FL (78-98); MEAN PLATELET VOLUME 8.6 FL (7.4-10.4); MONOCYTES % (AUTO) 12.2 % (2-12); NEUTROPHILS # (AUTO) 6.3 X10'3 (1.8-7.7); NEUTROPHILS % (AUTO) 75.7 % (42-75); PLATELET COUNT 144 X10'3 (140-440); RED BLOOD COUNT 3.57 X10'6 (4.70-6.10); RED CELL DISTRIBUTION WIDTH 17.5 % (11.5-14.5); WHITE BLOOD COUNT 8.3 X10'3 (4.5-11.0)
--- NOTE | 2019-08-25 06:23 | NUR ---
Problems reprioritized. Patient report given, questions answered & plan of care reviewed with Liza VOGT.
[2019-08-25 06:34] LABS: ALANINE AMINOTRANSFERASE 14 U/L (12-78); ALBUMIN 2.3 G/DL (3.4-5.0); ALBUMIN/GLOBULIN RATIO 0.7 (1.1-1.5); ALKALINE PHOSPHATASE 87 IU/L (46-116); ANION GAP 6 (8-16); ASPARTATE AMINO TRANSFERASE 20 U/L (10-37); BILIRUBIN,TOTAL 0.5 MG/DL (0.1-1.0); BLOOD UREA NITROGEN 13 MG/DL (7-18); BUN/CREATININE RATIO 17.3 (5.4-32.0); CHLORIDE 104 MMOL/L (99-107); CREATININE 0.75 MG/DL (0.60-1.10); GLUCOSE 109 MG/DL (70-104); MAGNESIUM 1.7 MG/DL (1.5-2.4); SODIUM 140 MMOL/L (135-145); TOTAL CARBON DIOXIDE 30.2 MMOL/L (24-32); TOTAL PROTEIN 5.8 G/DL (6.4-8.2); eGFR > 90 ML/MIN
[2019-08-25 06:52] VITALS: BP 138/72
[2019-08-25] MEDS: magnesium oxide 400mg tablet PO SCH (07:14)
[2019-08-25] MEDS: K and/or MAG REPLACEMENT MC SCH (07:14)
[2019-08-25] MEDS: HYDROcodone/acetaminophen 10/325mg tab PO PRN (07:14)
[2019-08-25] MEDS: aspirin 81mg tablet.DR PO SCH (07:14)
[2019-08-25] MEDS: metoprolol tartrate 12.5mg (1/2 tablet) PO SCH ×2 (07:14→09:53)
[2019-08-25 10:12] VITALS: BP 98/56
== END 2019-08-25 13:00 | DRG 470 ==
LOC: PAS IN 07:25 → EDSTATUS 11:15 → ORTHO 4S 12:57 → EDBEDREQSVC 13:13
PROVIDERS: ADMIT Orthopaedic Surgery; ATTEND Orthopaedic Surgery
PROC: 0SR906Z Replacement of Right Hip Joint with Oxidized Zirconium on Polyethylene Synthetic Substitute, Open Approach (ICD-10-PCS; principal; 2019-08-22 10:20)
DX: M16.11 Unilateral primary osteoarthritis, right hip (principal); D62 Acute posthemorrhagic anemia; I47.2 Ventricular tachycardia; F42.9 Obsessive-compulsive disorder, unspecified; I10 Essential (primary) hypertension; I25.10 Atherosclerotic heart disease of native coronary artery without angina pectoris; J44.9 Chronic obstructive pulmonary disease, unspecified; N40.0 Benign prostatic hyperplasia without lower urinary tract symptoms; Z95.1 Presence of aortocoronary bypass graft; Z95.2 Presence of prosthetic heart valve; Z95.5 Presence of coronary angioplasty implant and graft
CPT/HCPCS: 36415; 71046; 80053; 82948; 83735; 85025; 85610; 85730; 86885; 86900; 86901; 86920; 87081; 93005; 97110; 97116; 97162; 97530; 97535; A4618; A6258; A6402; A7000; C1758; C1776; G0378; J0690; J2001; J2175; J2250; J2704; J3010; J3370; J3475; J3480; J7030; J7040; J7120; P9045; Q0163